=== PATIENT | male | born 1995 | race Hispanic/Latino ===

== ENCOUNTER 2021-10-09 03:42 | Emergency (ER) | payer SELFPAY ==
[2021-10-09] MEDS ORDERED: Ondansetron ODT 4 MG TAB ONE (03:50)
[2021-10-09 04:33] LABS: Hemoglobin 15.7 g/dL (14.0-18.0); Mean Corpuscular HGB CONC 34.7 g/dL (32.0-36.0); Mean Corpuscular Hemoglobin 32.3 pg (27.0-31.0); Mean Corpuscular Volume 92.9 fL (78.0-98.0); Mean Platelet Volume 7.6 fL (7.4-10.4); Platelet Count 181 thou/uL (130-400); RBC Distribution Width 11.4 % (11.5-14.5); Red Blood Cell (RBC) Count 4.86 mill/uL (4.70-6.10); White Blood Cell (WBC) Count 9.7 thou/uL (4.8-10.8)
[2021-10-09 04:47] LABS: ALT (SGPT) 66 U/L (8-55); AST (SGOT) 50 U/L (5-34); Albumin 4.6 g/dL (3.5-5.0); Alkaline Phosphatase 86 U/L (40-110); Anion Gap 15 mmol/L (10-20); BUN (Urea Nitrogen) 15 mg/dL (8.9-20.6); Bilirubin, Total 0.5 mg/dL (0.2-1.2); Calc. Creatinine Clearance 0 mL/min (70-130); Calcium 9.4 mg/dL (7.8-10.44); Carbon Dioxide 25 mmol/L (22-29); Chloride 105 mmol/L (98-107); Globulin 3.2 g/dL (2.4-3.5); Glucose 135 mg/dL (70-105); Lipase 34 U/L (8-78); Potassium 3.1 mmol/L (3.5-5.1); Protein, Total 7.8 g/dL (6.0-8.3); Sodium 142 mmol/L (136-145)
[2021-10-09 04:50] LABS: Lymphocytes 58 % (21-51); MDiff Complete? YES; Neutrophil 32 % (42-75); Platelet Morphology Comment Appears Adequate; RBC Morphology Normal; Reactive Lymphocytes 10 % (0-10)
[2021-10-09] MEDS ORDERED: Dicyclomine 20 MG TAB ONE (05:32)
[2021-10-09 06:37] LABS: Bilirubin Negative (Negative); Blood, Urine Negative (Negative); Clarity Clear (Clear); Glucose, Urine (Dipstick) Normal (Negative); Ketone, Urine Negative (Negative); Leukocyte Negative Leu/uL (Negative); Nitrite Negative (Negative); Protein, Urine (Dipstick) Negative (Neg-Trace); Specific Gravity, Urine 1.042 (1.002-1.036); Urobilinogen Normal mg/dL (Less than 2); pH, Urine 7.5 (5.0-9.0)
[2021-10-09] MEDS ORDERED: Iopamidol-370 76% 500 ML 1 ML ONE (09:04)
== END 2021-10-09 08:15 | disposition home or self-care (01) ==
LOC: ERS 03:42
DX: K59.00 Constipation, unspecified (principal)
CPT/HCPCS: 36415; 74177; 80053; 81003; 83690; 85025; Q0162; Q9967